=== PATIENT | male | born 1960 | race Caucasian/White ===

== ENCOUNTER 2017-04-14 22:59 | Emergency (ER) | payer MEDICAID ==
[2017-04-14] MEDS ORDERED: Sodium Chloride 0.9% 1,000 ML IV ONE (23:02)
--- NOTE | 2017-04-14 23:09 | ED Physician Chart ---
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 Pain, A/N/V/D/C, fever, chills, paresthesias, weakness , dizziness, vertigo, visual or gait changes, or urinary s/s Allergies:: Allergies Allergy/AdvReac Type Severity Reaction Status Date / Time No Known Allergies Allergy Verified 04/14/17 23:02 Historian:: Patient, EMS Review:: Nurse's Note Reviewed, EMS run form Reviewed ED Review of Systems - Review of Systems General/Constitutional: No fever, No chills, No weight loss, No weakness, No diaphoresis, No edema, No loss of appetite Skin: No skin lesions, No rash, No bruising Head: No headache, No light-headedness Eyes: No loss of vision, No pain, No diplopia ENT: No earache, No nasal drainage, No sore throat, No tinnitus Neck: No neck pain, No swelling, No thyromegaly, No stiffness, No mass noted Cardio Vascular: No chest pain, No palpitations, No PND, No orthopnea, No edema Pulmonary: No SOB, No cough, No sputum, No wheezing GI: No nausea, No vomiting, No diarrhea, No pain, No melena, No hematochezia, No constipation, No hematemesis G/U: No dysuria, No frequency, No hematuria, No nacturia Musculoskeletal: No bone or joint pain, Back pain, No muscle pain Endocrine: No polyuria, No polydipsia Psychiatric: No prior psych history, No depression, No anxiety, No suicidal ideation, No homicidal ideation, No auditory hallucination, No visual hallucination Hematopoietic: No bruising, No lymphadenopathy Allergic/Immuno: No urticaria, No angioedema Neurological: No syncope, No focal symptoms, No weakness, No paresthesia, No headache, No seizure, No dizziness, No confusion, No vertigo Family Medical History - Family Member Mother History Unknown: Yes ED Physical Exam - Physical Examination General/Constitutional: Awake, Well-developed, well-nourished, Alert, No distress, GCS 15, Non-toxic appearing, Ambulatory Head: Atraumatic Eyes: Lids, conjuctiva normal, PERRL, EOMI Skin: Nl inspection, No rash, No skin lesions, No ecchymosis, Well hydrated, No lymphadenopathy ENMT: External ears, nose nl, TM canals nl, Nasal exam nl, Lips, teeth, gums nl , Oropharynx nl, Tonsils nl Neck: Nontender, Full ROM w/o pain, No JVD, No nuchal rigidity, No bruit, No mass, No stridor Other Neck comments:: supple; no meningeal signs; no cervical tenderness; no bruits Respiratory: Nl effort/Exclusion, Clear to Auscultation, No Wheeze/Rhonchi/Rales Cardio Vascular: RRR, No murmur, gallop, rubs, NL S1 S2, Carotid/Femoral/Distal pulses equal bilaterally GI: No tenderness/rebounding/guarding, No organomegaly, No hernia, Normal BS's, Nondistended, No mass/bruits, No McBurney tenderness, Rectum exam nl Other GI comments:: no pulsatile masses : No CVA tenderness Extremities: No tenderness or effusion, Full ROM, normal strength in all extremities, No edema, Normal digits & nails Neuro/Psych: Alert/oriented, DTR's symmetric, Normal sensory exam, Normal motor strength, Judgement/insight normal, Mood normal, Normal gait, No focal deficits Misc: Normal back, No paraspinal tenderness ED Labs/Radiology/EKG Results - Lab Results Comments:: ETOH: 273; K+: 3.4; UDS: + - Radiology Results Comments:: NAD - EKG Interpretations Comments:: pt refused EKG ED Septic Shock - . Is Septic Shock (SBP<90, OR Lactate>4 mmol\L) present?: No ED Reassessment (Disposition) - Reassessment Reassessment:: pt is A+Ox 4; Gait: WNL; Neuro: no focal signs; pt is asymptomatic upon discharge Reassessment Condition:: Improved - Diagnosis Diagnosis:: Alcohol Intoxication; ETOH Abuse; Substance Abuse; Hypokalemia; Dehydration; ALOC-Resolved; Alcoholism; Back Pain; L-S Strain; Sprains and Strains - Aftercare/Follow up Instructions Aftercare/Follow-Up Instructions:: Counseled pt regarding lab results/diagnosis & need follow up, Refer to Discharge Instructions, Counseled pt & family regarding lab results/diagnosis & need follow up - Patient Disposition Discharge/Transfer:: Home Condition at Disposition:: Stable, Improved (RTER prn if existing s/s reoccur and/or get worse and/or any other new s/s occur; ACIs given for all above Dx; X- Rays Instructions; Refer to [facility]; Refer to Neurologist/Electrical Logger/ Orthopedist JUAN; F/U with PMD today or prn; RTER prn if concerned) ED Discharge Plan - Patient Disposition Instructions: Alcohol Intoxication, [id number] Additional Instructions: Follow up with your primary care provider. Return to ER immediately if symptoms worsen.
[2017-04-15 00:20] LABS: % BASOPHILS 0.7 % (0.0-2.0); BASOPHILE ABSOLUTE 0.1 Th/cumm (0-0.2); EOSINOPHILE ABSOLUTE 0.4 Th/cmm (0.1-0.4); LYMPHOCYTE ABSOLUTE 2.7 Th/cmm (1.5-3.0); MEAN CELL VOLUME 88.2 fl (80-99); MONOCYTE ABSOLUTE 0.5 Th/cmm (0.3-1.0)
[2017-04-15 00:22] LABS: % EOSINOPHILS 4.2 % (0.0-5.0); % LYMPHOCYTES 31.3 % (20.0-50.0); % MONOCYTES 5.3 % (2.0-10.0); % NEUTROPHILS 58.5 % (40.0-80.0); HEMATOCRIT 43.4 % (41.0-60); HEMOGLOBIN 14.9 gm/dL (12-16); MEAN CORPUSCULAR HEMOGLOBIN 30.3 pg (26.0-30.0); MEAN CORPUSCULAR HGB CONC 34.3 pg (28.0-36.0); MEAN PLATELET VOLUME 7.6 fl; NEUTROPHILE ABSOLUTE 4.8 Th/cmm (1.8-8.0); PLATELET COUNT 226 Th/cmm (150-400); RED BLOOD COUNT 4.92 Mil/cmm (4.30-5.70); RED CELL DISTRIBUTION WIDTH 12.8 % (11.5-20.0); WHITE BLOOD COUNT 8.5 Th/cmm (4.8-10.8)
[2017-04-15 00:34] LABS: ALB/GLOB RATIO 1.3 (1.0-1.8); ALBUMIN 3.8 gm/dL (4.2-5.5); ALKALINE PHOSPHATASE 30 U/L (34-104); ANION GAP 13.6 (7.0-16.0); BILIRUBIN,TOTAL 0.2 mg/dL (0.3-1.0); BUN - UREA NITROGEN 8 mg/dL (7-25); CALCIUM SERUM 8.7 mg/dL (8.6-10.3); CARBON DIOXIDE 25.8 mEq/L (21.0-31.0); CHLORIDE 107 mEq/L (98-107); CREATININE - SERUM 0.7 mg/dL (0.7-1.3); GFR AFRICAN-AMERICAN > 60.0 ml/min (>90); GFR NON AFRICAN-AMERICAN > 60.0 ml/min; GLUCOSE 114 mg/dL (70-105); POTASSIUM SERUM 3.4 mEq/L (3.5-5.1); SGOT 17 U/L (13-39); SGPT/ALT 26 U/L (7-52); SODIUM SERUM 143 mEq/L (136-145); TOTAL PROTEIN,SERUM 6.7 gm/dL (6.0-8.3)
[2017-04-15 00:43] LABS: INR 0.99 (0.5-1.4); PROTHROMBIN TIME (TEST) 10.3 SECONDS (9.5-11.5)
[2017-04-15] MEDS ORDERED: Multivitamin Inj 10 ML, Thiamine HCL 100 MG, Magnesium Sulfate 2 GM, Folic Acid 1 MG in... IV ONE (02:21)
[2017-04-15] MEDS ORDERED: Potassium Chloride 20 mEq ER Tab PO ONE (02:27)
[2017-04-15] MEDS ORDERED: Thiamine 100 mg/mL 2mL Vial ONE (03:18)
[2017-04-15] MEDS ORDERED: Magnesium Sulfate 1 gm/2 mL 2mL Vial IV ONE (03:18)
[2017-04-15] MEDS ORDERED: Multivitamin Inj 10 mL Vial IV ONE (03:18)
[2017-04-15 05:36] LABS: BENZODIAZEPINES QUAL URINE POSITIVE (NEGATIVE); CANNABINOID THC POSITIVE (NEGATIVE)
[2017-04-15 05:37] LABS: AMPHETAMINE URINE NEGATIVE (NEGATIVE); BARBITURATES URINE NEGATIVE (NEGATIVE); COCAINE METABOLITE QUAL URINE NEGATIVE (NEGATIVE); METHADONE URINE NEGATIVE (NEGATIVE); METHAMPHETAMINES QUAL URINE NEGATIVE (NEGATIVE); OPIATES (MORPHINE) QUAL. URINE NEGATIVE (NEGATIVE); PHENCYCLIDINE (PCP) URINE NEGATIVE (NEGATIVE); TRICYCLICS (TCA) QUAL. URINE NEGATIVE (NEGATIVE)
[2017-04-15 05:43] LABS: URINE MICROSCOPIC INDICATED? YES; URINE SOURCE CLEAN C
[2017-04-15 05:49] LABS: URINE BILIRUBIN NEGATIVE (NEGATIVE); URINE BLOOD NEGATIVE (NEGATIVE); URINE GLUCOSE (UA) NEGATIVE (NEGATIVE); URINE KETONE NEGATIVE (NEGATIVE); URINE LEUKOCYTE ESTERASE NEGATIVE (NEGATIVE); URINE NITRATE NEGATIVE (NEGATIVE); URINE PROTEIN NEGATIVE (NEGATIVE); URINE UROBILINOGEN 0.2 E.U./dL (0.2 - 1.0)
[2017-04-15 05:53] LABS: URINE CLARITY CLEAR (CLEAR); URINE COLOR YELLOW; URINE EPITHELIAL CELLS OCCASIONAL /lpf (FEW); URINE RBC NONE SEEN /hpf (0-5); URINE WBC 0-2 /hpf (0-5)
[2017-04-15 05:54] LABS: URINE BACTERIA OCCASIONAL /hpf (NONE SEEN)
--- NOTE | 2017-04-15 07:51 | Diagnostic Imaging Report ---
Head CT without intravenous contrast Indication: Altered mental status, alcohol intoxication Comparison: None Technique: Axial images were obtained from the vertex to the skull base without IV contrast. Coronal reconstructions were made. Total DLP: 717, CTDI38 FINDINGS: Images of the brain obtained without contrast demonstrate no acute hemorrhage. No mass lesions identified. The ventricles and basal cisterns are patent. The sage-white matter differentiation is preserved. There is no mass effect or midline shift. No skull fractures identified. No soft tissue swelling. Sinus inflammatory disease is seen with partial opacification of left maxillary sinus. IMPRESSION: No acute intracranial abnormality. Sinus inflammatory disease with partial opacification of the left maxillary sinus.
--- NOTE | 2017-04-15 07:57 | Diagnostic Imaging Report ---
CT abdomen and pelvis without intravenous contrast Indication: Abdominal pain, back pain, rule out aortic aneurysm Comparison: None, Technique: Axial images were obtained from the lung bases to the bilateral proximal femurs without IV contrast. Coronal reconstructions were made. total DLP: 586, CTDI11.8 FINDINGS: Exam is limited due to motion and lack of IV contrast. Hypoventilatory and atelectatic changes of the lung bases are noted. Mild hepatomegaly is noted with fatty infiltration. No focal lesions identified. No focal splenic or pancreatic lesions. No focal adrenal lesions. Bilateral perinephric inflammatory changes are noted. No evidence of hydronephrosis. Faint 3 mm nonobstructive right renal stone is noted. There is also an adjacent subcentimeter low-density focus too small to characterize but possibly representing a cyst. Distended urinary bladder is noted. Small bilateral fat-containing inguinal hernias are noted. Moderate stool is seen throughout the colon. Minimal diverticulosis is noted without evidence of diverticulitis. No evidence of appendicitis. No evidence of free fluid or free air. Moderate atherosclerotic vascular disease is noted. No evidence of an aortic aneurysm. Degenerative changes mild degenerative changes of the spine are noted with multilevel Schmorl's node formation and old mild compression deformities at T11 and T12. IMPRESSION: Limited exam due to lack of IV contrast. No evidence of an aortic aneurysm. Moderate atherosclerotic vascular disease. Nonspecific bilateral perinephric inflammatory changes. 3 mm faint nonobstructing right renal stone is noted. Additional subcentimeter low-density lesion of the right kidney is noted too small to characterize but possibly representing a cyst. Distended urinary bladder. Minimal diverticulosis without diverticulitis. Small bilateral fat-containing inguinal hernias. Mild hepatomegaly with fatty infiltration.
== END 2017-04-15 06:37 | disposition home or self-care (01) ==
LOC: ER 22:59
DX: S39.012A Strain of muscle, fascia and tendon of lower back, initial encounter (principal); F10.129 Alcohol abuse with intoxication, unspecified; E87.6 Hypokalemia; E86.0 Dehydration; X58.XXXA Exposure to other specified factors, initial encounter; Y93.89 Activity, other specified; Y92.89 Other specified places as the place of occurrence of the external cause; Y99.8 Other external cause status
CPT/HCPCS: 99285; 96374; 84484; 83880; 36415; 80307; 85025; 85610; 81001; 80320; 82550; 80053; 70450; 74176; J2060; J3411; J3475; J7030; X6226; X6598